=== PATIENT | female | born 1950 | race Caucasian/White ===

== ENCOUNTER 2025-05-06 10:33 | Inpatient (IN) | payer MEDICARE, OTHER ==
[~2025-05-06] VITALS: Ht 152.4 cm; Wt 59.0 kg
[2025-05-06] MEDS ORDERED: ROSU5TAB13 PO (10:58)
[2025-05-06] MEDS ORDERED: ASPI-1420 PO (10:58)
[2025-05-06] MEDS ORDERED: HYDR500C2 PO (10:58)
[2025-05-06] MEDS ORDERED: MULT-1275 PO (10:58)
[2025-05-06] MEDS ORDERED: LOSA50TA39 PO (10:58)
[2025-05-06] MEDS ORDERED: CLON0.1T PO (10:58)
[2025-05-06] MEDS ORDERED: ACET325T53 PO (10:58)
[2025-05-06] MEDS ORDERED: DOCU100C58 PO (10:58)
[2025-05-06 11:05] LABS: PLATELET COUNT (AUTO) 438 K/uL (179-408); RED BLOOD CELL COUNT(AUTO) 4.70 MIL/uL (3.63-4.92); RED CELL DISTRIBUTION WIDTH 22.4 % (12.3-17.7); WHITE BLOOD COUNT (AUTO) 10.0 K/uL (3.8-11.8)
[2025-05-06 11:13] LABS: CREATININE 0.8 mg/dL (0.6-1.3); SODIUM SERUM 145 mmol/L (136-145); UREA NITROGEN, BLOOD 20 mg/dL (7-18)
[2025-05-06 11:19] LABS: ASPARTATE AMINOTRANSFERASE 9 U/L (15-37); TOTAL PROTEIN, SERUM 8.5 g/dL (6.4-8.2)
[2025-05-06] MEDS: IV NORMAL SALINE 1000 ML BAG IV ONE (11:24)
[2025-05-06] MEDS ORDERED: CLONIDINE HCL 0.1 MG TABLET ONE (11:30)
[2025-05-06] MEDS: CLONIDINE HCL 0.1 MG TABLET PO ONE (11:37)
[2025-05-06] MEDS ORDERED: LORAZEPAM 1 MG TABLET ONE (12:04)
[2025-05-06 12:06] LABS: EOSINOPHILS % (MANUAL) 3 % (0-8); LYMPHOCYTES % (MANUAL) 15 % (20-40); MONOCYTES % (MANUAL) 4 % (2-10); NEUTROPHILS % (MANUAL) 78 % (42-75)
[2025-05-06 12:07] LABS: PLATELET ESTIMATE INCREASED
[2025-05-06] MEDS: LORAZEPAM 0.5 MG TABLET PO ONE ×2 (12:10→12:14)
[2025-05-06] MEDS ORDERED: CYANOCOBALAMIN 1000 MCG/ML VIAL ONE (12:12)
[2025-05-06] MEDS: CYANOCOBALAMIN 1000 MCG/ML VIAL IM ONE (12:14)
[2025-05-06 15:40] VITALS: BP 140/99
[2025-05-06 17:11] LABS: *BILIRUBIN,URIN NEGATIVE (NEGATIVE); *CLARITY,URINE CLEAR (CLEAR); *COLOR,URINE LIGHT YELLOW (YELLOW); *KETONES,URINE NEGATIVE (NEGATIVE); *PROTEIN,URINE NEGATIVE (NEGATIVE); *UROBILINOGEN,URINE 0.2 E.U./dl (NORMAL); LEUKOCYTE ESTERASE ,URINE 1+ (NEGATIVE); NITRITE, URINE NEGATIVE (NEGATIVE); UGLUCOSE NEGATIVE (NEGATIVE)
[2025-05-06 17:18] LABS: *BLOOD, URINE TRACE (NEGATIVE)
[2025-05-06 17:37] LABS: SQUAMOUS EPITHELIAL CELL,UR MODERATE /HPF (NONE SEEN)
[2025-05-06] MEDS ORDERED: REMEDY ESSENTIAL ZINC PASTE 113 GM TP PRN (20:30)
[2025-05-06] MEDS ORDERED: ONDANSETRON 4 MG/2 ML VIAL IV PRN (20:30)
[2025-05-06 20:49] VITALS: BP 143/92; TEMP 98.5; O2SAT 100
[2025-05-06] MEDS: CLONIDINE HCL 0.1 MG TABLET PO SCH (20:59)
[2025-05-06] MEDS: AMLODIPINE 5 MG TABLET PO SCH (20:59)
[2025-05-06] MEDS: ENOXAPARIN SODIUM 40 MG/0.4 ML DISP.SYRIN SQ SCH (21:00)
[2025-05-06] MEDS: ATORVASTATIN 40 MG TABLET PO SCH (21:00)
[2025-05-07 05:43] VITALS: BP_SYST 109; BP_SYST 152; BP_DIAS 58; BP_DIAS 74; TEMP 98.3; O2SAT 93; O2SAT 99
[2025-05-07] MEDS: PANTOPRAZOLE SODIUM 40 MG TABLET.DR PO SCH (06:03)
[2025-05-07 06:42] LABS: PLATELET COUNT (AUTO) 362 K/uL (179-408); RED BLOOD CELL COUNT(AUTO) 4.32 MIL/uL (3.63-4.92); RED CELL DISTRIBUTION WIDTH 22.2 % (12.3-17.7); WHITE BLOOD COUNT (AUTO) 9.1 K/uL (3.8-11.8)
[2025-05-07 07:06] LABS: CREATININE 0.7 mg/dL (0.6-1.3); SODIUM SERUM 143 mmol/L (136-145); UREA NITROGEN, BLOOD 14 mg/dL (7-18)
[2025-05-07] MEDS: ASPIRIN EC 81 MG TABLET.DR PO SCH (08:21)
[2025-05-07] MEDS: LOSARTAN POTASSIUM 50 MG TABLET PO SCH (08:21)
[2025-05-07 08:31] LABS: EOSINOPHILS % (MANUAL) 4 % (0-8); LYMPHOCYTES % (MANUAL) 22 % (20-40); MONOCYTES % (MANUAL) 5 % (2-10); NEUTROPHILS % (MANUAL) 69 % (42-75)
[2025-05-07 08:32] LABS: PLATELET ESTIMATE ADEQUATE
[2025-05-07] MEDS: HYDROXYUREA 500 MG CAPSULE PO SCH (08:52)
[2025-05-07] MEDS ORDERED: CHOL-35 PO (11:10)
[2025-05-07] MEDS ORDERED: FOLI1TAB94 PO (11:10)
[2025-05-07 12:00] VITALS: BP 113/73; TEMP 98.3; O2SAT 100
[2025-05-07] MEDS: ACETAMINOPHEN 325 MG TABLET PO PRN (13:28)
[2025-05-07 16:26] VITALS: BP 149/76; TEMP 97.3; O2SAT 99
[2025-05-07 19:54] VITALS: BP 118/61; TEMP 98.5; O2SAT 99
[2025-05-07] MEDS: CLONIDINE HCL 0.1 MG TABLET PO SCH (23:43)
[2025-05-08 05:13] VITALS: BP 155/59; TEMP 97.9; O2SAT 98
[2025-05-08] MEDS: FOLIC ACID 1 MG TABLET PO SCH (08:10)
[2025-05-08] MEDS: CHOLECALCIFEROL 1,000 UNIT TABLET PO SCH (08:10)
[2025-05-08 10:43] VITALS: BP 119/59; TEMP 98.6; O2SAT 100
[2025-05-08] MEDS ORDERED: ACETAMINOPHEN 325 MG TABLET-SA PATIENTS-PAIN ONLY PO PRN (13:45)
[2025-05-08 14:02] LABS: IRON, SERUM 26 ug/dL (50-175)
[2025-05-08 15:06] VITALS: BP 111/51; TEMP 97.8; O2SAT 100
[2025-05-08 19:47] VITALS: BP 154/67; TEMP 97.7; O2SAT 100
[2025-05-09 05:14] VITALS: BP 132/71; TEMP 97.7; O2SAT 96
[2025-05-09] MEDS: MULTIVITAMINS,THERAPEUTIC TABLET PO SCH (08:26)
[2025-05-09] MEDS ORDERED: CHOLECALCIFEROL 1,000 UNIT TABLET PO SCH (09:00)
[2025-05-09] MEDS ORDERED: FOLIC ACID 1 MG TABLET PO SCH (09:00)
[2025-05-09] MEDS: DOCUSATE SODIUM 100 MG CAPSULE PO PRN (11:46)
[2025-05-09 11:48] VITALS: BP 141/95; TEMP 97.8; O2SAT 99
[2025-05-09 16:22] VITALS: BP 128/68; TEMP 97.7; O2SAT 100
[2025-05-09] MEDS ORDERED: CEPH500C2 PO (18:14)
[2025-05-09] MEDS ORDERED: AMLO-212 PO (18:14)
[2025-05-09] MEDS: QUETIAPINE FUMARATE 25 MG TABLET PO SCH (21:35)
[2025-05-09 22:23] VITALS: BP 115/43; TEMP 97.4; O2SAT 100
[2025-05-10 11:37] VITALS: BP 137/55; TEMP 98.1; O2SAT 98
[2025-05-10] MEDS: IBUPROFEN 600 MG TABLET PO PRN (12:09)
[2025-05-10 16:00] VITALS: BP 153/66; TEMP 98; O2SAT 100
[2025-05-10 19:54] VITALS: BP 122/51; TEMP 97.9; O2SAT 98
[2025-05-11 06:40] VITALS: BP 137/53; TEMP 97.8; O2SAT 99
[2025-05-11 12:00] VITALS: BP 125/55; TEMP 98.5; O2SAT 100
[2025-05-11 12:13] LABS: PLATELET COUNT (AUTO) 385 K/uL (179-408); RED BLOOD CELL COUNT(AUTO) 4.31 MIL/uL (3.63-4.92); RED CELL DISTRIBUTION WIDTH 22.2 % (12.3-17.7); WHITE BLOOD COUNT (AUTO) 7.6 K/uL (3.8-11.8)
[2025-05-11 12:30] LABS: ASPARTATE AMINOTRANSFERASE 236 U/L (15-37); CREATININE 1.0 mg/dL (0.6-1.3); SODIUM SERUM 141 mmol/L (136-145); TOTAL PROTEIN, SERUM 7.5 g/dL (6.4-8.2); UREA NITROGEN, BLOOD 20 mg/dL (7-18)
[2025-05-11 12:34] LABS: ERYTHROCYTE SEDIMENTATION RATE 50 MM/HR (0-20)
[2025-05-11 12:38] LABS: IRON, SERUM 19 ug/dL (50-175)
[2025-05-11] MEDS: OXCARBAZEPINE 150 MG TABLET PO SCH (13:47)
[2025-05-11 16:00] VITALS: BP 130/60; TEMP 97.4; O2SAT 100
[2025-05-11 16:13] VITALS: BP 130/55
== END 2025-05-11 17:58 | DRG 71 ==
LOC: ER 10:33 → TELE3 19:37 → MEDSURG3 19:57 → UNDODISIN 05-09 17:15
PROVIDERS: ADMIT Nurse Practitioner Acute Care; ATTEND Nurse Practitioner Acute Care
DX: I67.4 Hypertensive encephalopathy (principal); F03.92 Unspecified dementia, unspecified severity, with psychotic disturbance; F03.93 Unspecified dementia, unspecified severity, with mood disturbance; N39.0 Urinary tract infection, site not specified; I16.0 Hypertensive urgency; K80.20 Calculus of gallbladder without cholecystitis without obstruction; E86.0 Dehydration; R70.0 Elevated erythrocyte sedimentation rate; Z87.891 Personal history of nicotine dependence; D75.839 Thrombocytosis, unspecified; E78.5 Hyperlipidemia, unspecified; H53.2 Diplopia; I11.9 Hypertensive heart disease without heart failure; Z79.82 Long term (current) use of aspirin; Z53.20 Procedure and treatment not carried out because of patient's decision for unspecified reasons; D64.9 Anemia, unspecified
CPT/HCPCS: 36415; 70030-TC; 70450; 71045; 83550; 83605; 83735; 84100; 84443; 84484; 85025; 85651; 87086; 93307; A4606; A4663; G0378; J1650; J3420; J7040